=== PATIENT | female | born 1950 | race Caucasian/White ===

== ENCOUNTER 2020-11-23 11:59 | Outpatient (CLI) | payer MEDICARE, SELFPAY ==
[2020-11-23 13:43] LABS: Basophils Percent Auto 0.4 % (0.2-1.2); Eosinophils Absolute Auto 0.2 K/mm3 (0-0.3); Eosinophils Percent Auto 2.4 % (0-4.4); Hematocrit 42.3 % (37.0-47.0); Hemoglobin 13.8 g/dL (12.0-15.0); Immature Granulocyte Absolute 0.04 K/mm3 (0.00-0.031); Immature Granulocyte Percent A 0.5 % (0-0.5); Lymphocytes Absolute Auto 2.99 K/mm3 (0.9-3.2); Lymphocytes Percent Auto 35.3 % (18.3-44.2); Mean Corpuscular HGB Conc 32.6 g/dl (32-36); Mean Corpuscular Hemoglobin 28.9 pg (26-34); Mean Corpuscular Volume 88.5 fl (80-100); Mean Platelet Volume 10.4 fl (7.4-10.4); Monocytes Absolute Auto 0.8 K/mm3 (0.1-0.6); Monocytes Percent Auto 9.4 % (2.6-8.5); Neutrophils Absolute Auto 4.4 K/mm3 (1.3-6.7); Platelet Count Result 342 k/mm3 (150-375); Red Blood Count 4.78 M/mm3 (4.2-5.4); Red Cell Distribution Width 13.4 % (11.5-14.5); White Blood Count 8.5 K/mm3 (4.5-10.0)
[2020-11-23 13:50] LABS: Albumin Level 5.1 g/dL (3.5-5.1); Anion Gap 12 mmol/L (8-16); Blood Urea Nitrogen 16 mg/dL (7-17); Calcium 9.3 mg/dL (8.4-10.2); Carbon Dioxide 27 mmol/L (22-30); Chloride 101 mmol/L (98-107); Estimated Glomerular Filt Rate > 60; Glucose 103 mg/dL (65-110); Potassium 3.7 mmol/L (3.4-5.0); Sodium 140 mmol/L (137-145)
[2020-11-23 13:53] LABS: Hemoglobin A1C 5.4 % (<5.7); Urine Cotinine NEGATIVE
== END 2020-11-23 12:00 | disposition home or self-care (01) ==
LOC: ANHSURGERY 12:06
PROVIDERS: PCP Internal Medicine; Visit Provider Orthopaedic Surgery
DX: M17.11 Unilateral primary osteoarthritis, right knee (principal); Z01.818 Encounter for other preprocedural examination
CPT/HCPCS: 80048; 80307; 82040; 83036; 85025; 86850; 86900; 86901; 87070

== ENCOUNTER 2020-12-06 01:44 | Day surgery (SDC) | payer MEDICARE, SELFPAY ==
[2020-11-23 12:12] VITALS: BMI 29.1
[2020-11-23 13:03] VITALS: BP 130/64; PULSE 69; RESP 16; TEMP 37.1; O2SAT 98
--- NOTE | 2020-12-04 12:33 | PM.IMHP ---
H&P: HPI History of Present Illness Date/Time: 12/04/20 12:33 70-year-old female patient who presents today for a right total knee arthroplasty. She has been progressively worsening symptoms in the right knee. She had cortisone injection approximately May this year which only gave her relief from the local anesthetic. She is unable take anti-inflammatories due to history of ulcerative colitis. She has moderately severe medial compartment arthritis in the right knee and is suffering most days. It is keeping her from daily activities. She has reached a point where she feels she would rather proceed with total knee arthroplasty rather continue nonsurgical treatment. Chief Complaint: right knee DJD Review of Systems Review of Systems: All systems reviewed & are unremarkable except as noted in HPI and below PMFSH Social History Social History Smoking status: Never smoker Additional smoking assessment comments: DENIES ANY FORM OF TOBACCO USE Spiritual care concerns: No Meds Home Medications and Allergies Home Medications Medication Instructions Recorded Confirmed Type Lactobacillus acidophilus 10,000 mmu cells PO EVERY OTHER DAY 11/23/20 11/23/20 History [Probiotic] acetaminophen 650 mg PO PRN PRN 11/23/20 11/23/20 History ascorbate calcium (vitamin C) 500 mg PO QPM 11/23/20 11/23/20 History aspirin [Adult Low Dose Aspirin] 81 mg PO QPM 11/23/20 11/23/20 History buspirone 7.5 mg PO HS 11/23/20 11/23/20 History buspirone 15 mg PO QAM 11/23/20 11/23/20 History cholecalciferol (vitamin D3) 75 mcg PO DAILY 11/23/20 11/23/20 History coenzyme Q10 [CoQ-10] 100 mg PO QPM 11/23/20 11/23/20 History cyanocobalamin (vitamin B-12) 100 mcg PO EVERY OTHER DAY 11/23/20 11/23/20 History diazepam 2 mg PO QAM 11/23/20 11/23/20 History fexofenadine [Delaney Allergy] 180 mg PO DAILY 11/23/20 11/23/20 History fluticasone propionate 2 spray INTRANASAL QPM 11/23/20 11/23/20 History levothyroxine [Synthroid] 75 mcg PO DAILY 11/23/20 11/23/20 History potassium chloride [Klor-Con M20] 40 meq PO QAM 11/23/20 11/23/20 History sertraline 150 mg PO QAM 11/23/20 11/23/20 History simvastatin 40 mg PO HS 11/23/20 11/23/20 History triamterene-hydrochlorothiazid 1 cap PO QAM 11/23/20 11/23/20 History zinc 30 mg PO QPM 11/23/20 11/23/20 History Allergies Allergy/AdvReac Type Severity Reaction Status Date / Time citalopram Allergy Intermediate FELT Verified 11/23/20 12:14 INSIDES BURNING ciprofloxacin AdvReac Severe Muscle pain Verified 11/23/20 12:14 levofloxacin AdvReac Severe Vertigo Verified 11/23/20 12:14 Exam Narrative: 70-year-old female alert pleasant. She is 5 ft 4 and 169 lb. Her right hip has full range of motion negative Stinchfield maneuver. Normal quad strength. right knee range of motion is from 5-135 degrees with pain at full flexion. Trace effusion. Mild pain with patellofemoral grind. Minimal pain to the medial joint line. 2+ dorsalis pedis and posterior tibial artery pulse. Skin is normal. No edema in the right lower extremity. Normal sensation right lower extremity. Resp: Auscultation: clear to auscultation bilaterally Cardio: Rate: regular rate Rhythm: regular rhythm Assessment and Plan Additional Plan 70-year-old female who has severe medial compartment arthritis of the right knee with rather severe symptoms daily. Again she feels she may proceed with total knee arthroplasty rather than continue nonsurgical treatment. Surgical procedure as well as risks and complications were discussed in detail and all questions were answered and we will proceed. Patient has seen her primary care doctor for pre-surgical clearance. She has seen the internal affairs investigator, she had a stress test done in October of 2020 which showed ejection fraction is 75% without abnormalities. She had normal myocardial perfusion and no changes. Echocardiogram also in
[2020-12-06] VITALS (14 sets, daily range): BP systolic 112–161; BP diastolic 47–71; PULSE 72–109; RESP 12–20; TEMP 36.1–38.3; O2SAT 92–97
--- NOTE | ~2020-12-06 | XR_ITS ---
EXAMINATION: XR knee RT 2V DATE: 12/06/2020 15:54 INDICATION: Right knee arthroplasty. Postop. TECHNIQUE: 2 views of right knee were obtained. COMPARISON: None. FINDINGS: There is a total right knee arthroplasty without patellar resurfacing in near-anatomic alig nment. No fracture. There is gas in the knee joint and soft tissues, consistent with recent surgery. IMPRESSION: 1. Total right knee arthroplasty in near-anatomic alignment. Reviewed, dictated and finalized at location A.
[2020-12-06] MEDS: ACETAMINOPHEN 500 MG TABLET 1000 MG PO ×3 (10:29→23:35)
[2020-12-06] MEDS: LACTATED RINGERS 1,000 ML 30 ML IV CONT ×2 (10:35→15:22)
--- NOTE | 2020-12-06 11:11 | WPDANESEPPF ---
Anes - Initial Pre Proc Eval Procedure: Operation Date: 12/06/20 12:00 Proposed Procedures p Right Total Knee Arthroplasty - Harshad Lomas MD Date/Time: 12/06/20 11:11 Surgeon: Harshad Lomas MD Pre Op Diagnosis: OA right knee Patient Data Age: 70 Gender: F Height: 1.63 m Weight: 75.6 kg Last Vital Signs Temp 36.1 C L 12/06/20 09:59 Pulse 72 12/06/20 09:59 Resp 20 12/06/20 09:59 BP 132/68 12/06/20 09:59 Pulse Ox 96 12/06/20 09:59 Allergies Allergy/AdvReac Type Severity Reaction Status Date / Time citalopram Allergy Intermediate FELT Verified 11/23/20 12:14 INSIDES BURNING ciprofloxacin AdvReac Severe Muscle pain Verified 11/23/20 12:14 levofloxacin AdvReac Severe Vertigo Verified 11/23/20 12:14 Home Medications Medication Instructions Recorded Confirmed Type Lactobacillus acidophilus 10,000 mmu cells PO EVERY OTHER DAY 11/23/20 12/06/20 History [Probiotic] acetaminophen 650 mg PO PRN PRN 11/23/20 12/06/20 History ascorbate calcium (vitamin C) 500 mg PO QPM 11/23/20 12/06/20 History aspirin [Adult Low Dose Aspirin] 81 mg PO QPM 11/23/20 12/06/20 History buspirone 7.5 mg PO HS 11/23/20 12/06/20 History buspirone 15 mg PO QAM 11/23/20 12/06/20 History cholecalciferol (vitamin D3) 75 mcg PO DAILY 11/23/20 12/06/20 History coenzyme Q10 [CoQ-10] 100 mg PO QPM 11/23/20 12/06/20 History cyanocobalamin (vitamin B-12) 100 mcg PO EVERY OTHER DAY 11/23/20 12/06/20 History diazepam 2 mg PO QAM 11/23/20 12/06/20 History fexofenadine [Delaney Allergy] 180 mg PO DAILY 11/23/20 12/06/20 History fluticasone propionate 2 spray INTRANASAL QPM 11/23/20 12/06/20 History levothyroxine [Synthroid] 75 mcg PO DAILY 11/23/20 12/06/20 History potassium chloride [Klor-Con M20] 40 meq PO QAM 11/23/20 12/06/20 History sertraline 150 mg PO QAM 11/23/20 12/06/20 History simvastatin 40 mg PO HS 11/23/20 12/06/20 History triamterene-hydrochlorothiazid 1 cap PO QAM 11/23/20 12/06/20 History zinc 30 mg PO QPM 11/23/20 12/06/20 History Patient hx anesthesia problems: none Family hx anesthesia problems: none Results Review: All pre-operative results and documents have been reviewed as part of the pre-operative evaluation. [facility] Past Medical History Medical History GERD (gastroesophageal reflux disease) Hyperlipidemia Hypertension Hypothyroid EMILY (obstructive sleep apnea) Social History Social History Smoking status: Never smoker Additional smoking assessment comments: DENIES ANY FORM OF TOBACCO USE Living arrangements: with family Spiritual care concerns: No Anes - Eval Final PreProcedure Day of Procedure 12/06/20 11:11 Patient weight: overweight Heart: regular rate and rhythm Lungs: clear to auscultation Airway: Mallampati scale class III Neurological: alert and oriented Last oral intake: >/= 8 hours ASA classification: III Emergent: no Anesthetic plan: proceed Anesthesia type and monitoring: general LMA and standard monitoring Results Review: All pre-operative results and documents have been reviewed as part of the pre-operative evaluation. Informed Consent: The patient's anesthetic plan and its attendant risks and benefits were discussed with the patient/family/POA. Questions were solicited and answers provided to the satisfaction of the patient/family/POA.
[2020-12-06] MEDS: SCOPOLAMINE 1.5 MG PATCH TRANSDERM (11:33)
[2020-12-06] MEDS: TRANEXAMIC ACID 1,000MG/ISO100 1,000 MG/100 ML BAG 200 MG IVPB (11:33)
--- NOTE | 2020-12-06 11:44 | WPDHPUPDATE1 ---
History and Physical Update Update Date/Time: 12/06/20 11:44 History and Physical has been reviewed, including an updated exam of the patient. There are NO changes in the patient's condition. Risks, benefits, and alternatives have been discussed and questions answered. Patient agrees to proceed with procedure.
[2020-12-06] MEDS: ceFAZolin 2 GM/D5W 50 ML 2 GM/50 ML BAG IVPB (12:04)
[2020-12-06] MEDS: ceFAZolin SODIUM 1 GM VIAL 3 GM IRRIGATION (12:48)
[2020-12-06] MEDS: GENTAMICIN BONE CEMENT REFOBACIN 1 EACH TOPICAL (12:52)
[2020-12-06] MEDS: TRANEXAMIC ACID 1,000 MG/10 ML AMPUL 1000 MG IV PUSH (14:08)
[2020-12-06] MEDS: ceFAZolin SODIUM 1 GM VIAL IV PUSH (14:08)
--- NOTE | 2020-12-06 14:57 | W.PM.PROC2 ---
Procedure Note - Detailed Date of Procedure 12/06/20 Pre-op Diagnosis OA right knee Post-op Diagnosis same Procedure Performed Right total knee arthroplasty Surgeon Harshad Lomas MD Nurse Practitioner Joyce Bosch Anesthesia general Indications Pain failure of non operative treatment Findings Same Description of Procedure Patient brought to the operating room and general anesthesia was administered. She received 2 g of Ancef weight based vancomycin 1 g of tranexamic acid preoperatively. The right knee was prepped draped usual fashion. Limb was exsanguinated and tourniquet elevated to 250 mmHg. A E and 8 in longitudinal incision was made and a vastus medialis splitting approach utilized. She became somewhat hypertensive with the anesthesia a blood pressure of 180 which caused bleeding through the tourniquet. We deflated the tourniquet re-exsanguinated and elevated the tourniquet to 300 mmHg for the rest the procedure. Suprapatellar and infrapatellar fat pads were excised the quadriceps defect be carried out. The patella had chondromalacia along its medial facet but otherwise normal cartilage thickness and had a smooth contour which I felt was most suitable for non resurfacing. A limited lateral facetectomy was performed. A guide eboni was inserted on femoral canal for aspiration of canal contents using the 5 degree valgus cutting bushing 9 mm of bone removed the distal femur. This removed about 7 lateral side. Next a skim cut was made off the tibial plateau cutting just underneath the articular cartilage the posterior aspect of the medial lateral plateaus. This was made perpendicular to the axis of the tibia. Meniscal remnants were excised. PCL was recessed. At 90?, the medial side gap 7 mm the lateral side 11. A sizing guide was inserted set at 4? of external rotation which matched Whitesides line. Posterior referencing pinholes were placed. We placed the size 62.5 which was the proper with her femur that was going to notch. Even the 65 was going to notch. We introduced about 3? of slope to the distal femoral cut reapplied the distal femoral cutting block 65 AP and chamfer cuts were made. As predicted the 65 was a little bit wide but did not notch rest on the anterior surface of the anterior cortex anteriorly. It overhung 2 laterally 1 medially. We found that insertion of the 10 mm CR on the 67 was tight at 90?. I felt additional 2 mm of bone should removed from the tibial plateau and this was done again perpendicular to the axis of the tibia. We sized the tibial plateau to a vanguard 67 which fit line to line posterolateral to anteromedial. Rotation was set relative to the medial 1/3 of the tibial tubercle anterior tibial plateau in the 2nd metatarsal ray. This was punched we trialed with the 10. At 90? we had a mm of play medially a mm and half of plate laterally with very appropriate anterior-posterior drawer stability gravity flexion to 140 and full extension with a negative bounce with 1 mm of medial plate 5? no medial plate and full extension 2 mm of lateral play varus stress. This seemed very appropriate. Since the femoral component was a little bit too wide we applied the 62.5 cutting block and made sure it was aligned with the same posterior slope maintaining flush alignment with the posterior condylar cuts and this was additionally stabilized with the threaded compression pins. We then recut the anterior and the anterior chamfer cuts and applied the 62.5 which fit line to line medial to lateral with an excellent fit and full seating. Residual posterior femoral bone was removed this time. We then replaced the 67 tibia 10 spacer and placed the 11 insert trial and a 62.5 trial. This lacked about 2 or 3? of extension with a positive bounce and had no anterior posterior drawer plate 90? on either side. We trialed with the 10 and had the same findings as before with full extension negative bounce and appropriate AP stability feel througho
[2020-12-06] MEDS: fentaNYL CITRATE INJ (*CRX) 100 MCG/2 ML VIAL 25 MCG IV PUSH ×4 (16:14→16:30)
--- NOTE | 2020-12-06 17:09 | PC.NURSE ---
This patient, Yadira Roe, was admitted to 2 Medical Room 259-. Patient/family oriented to hospital policies and general routines including ID bracelet, bed and alarms, visiting hours, pain management, procedures, bathroom and other care routines, personal items, smoking policy, room service/diet, and visiting hours. Information on how to activate the Rapid Response Team has been discussed. Patient/Family are encouraged to report perceived risks to care and to ask questions if they do not understand what they are told or what they should do.
[2020-12-06] MEDS: FLUTICASONE PROPIONATE 0.05% NA SPR 16 GM BTL (*BKC) 2 SPRAY NASAL (18:03)
[2020-12-06] MEDS: SENNA/DOCUSATE SODIUM TABLET 2 TAB PO (18:05)
[2020-12-06] MEDS: ASCORBIC ACID 500 MG TABLET PO (18:05)
[2020-12-06] MEDS: oxyCODONE HCL (*CRX) 5 MG TAB IR PO (20:05)
[2020-12-06] MEDS: SIMVASTATIN 20 MG TABLET 40 MG PO (20:05)
[2020-12-06] MEDS: busPIRone HCL 2.5 MG, busPIRone HCL 5 MG 7.5 MG PO (20:05)
--- NOTE | 2020-12-06 23:35 | PM.IMHP ---
H&P: HPI History of Present Illness Date/Time: 12/06/20 23:35 this is a 70-year-old female patient who presented today for right total knee arthroplasty. The patient has been having progressively worsening symptoms in her right knee. The patient was complaining of having some pain at started up, with activity and nocturnal pain. The patient did do some physical therapy which she said helped better than the course all injections. The patient is unable to take anti-inflammatories due to history of ulcerative colitis. The patient has moderately severe medial compartment arthritis in her right knee and is in pain most days. [facility] Past Medical History Medical History GERD (gastroesophageal reflux disease) Hyperlipidemia Hypertension Hypothyroid EMILY (obstructive sleep apnea) Social History Social History Smoking status: Never smoker Additional smoking assessment comments: DENIES ANY FORM OF TOBACCO USE Alcohol intake: never Substance use: never Substance use type: does not use Living arrangements: with family Spiritual care concerns: No Meds Home Medications and Allergies Home Medications Medication Instructions Recorded Confirmed Type Lactobacillus acidophilus 10,000 mmu cells PO EVERY OTHER DAY 11/23/20 12/06/20 History [Probiotic] acetaminophen 650 mg PO PRN PRN 11/23/20 12/06/20 History ascorbate calcium (vitamin C) 500 mg PO QPM 11/23/20 12/06/20 History aspirin [Adult Low Dose Aspirin] 81 mg PO QPM 11/23/20 12/06/20 History buspirone 7.5 mg PO HS 11/23/20 12/06/20 History buspirone 15 mg PO QAM 11/23/20 12/06/20 History cholecalciferol (vitamin D3) 75 mcg PO DAILY 11/23/20 12/06/20 History coenzyme Q10 [CoQ-10] 100 mg PO QPM 11/23/20 12/06/20 History cyanocobalamin (vitamin B-12) 100 mcg PO EVERY OTHER DAY 11/23/20 12/06/20 History diazepam 2 mg PO QAM 11/23/20 12/06/20 History fexofenadine [Delaney Allergy] 180 mg PO DAILY 11/23/20 12/06/20 History fluticasone propionate 2 spray INTRANASAL QPM 11/23/20 12/06/20 History levothyroxine [Synthroid] 75 mcg PO DAILY 11/23/20 12/06/20 History potassium chloride [Klor-Con M20] 40 meq PO QAM 11/23/20 12/06/20 History sertraline 150 mg PO QAM 11/23/20 12/06/20 History simvastatin 40 mg PO HS 11/23/20 12/06/20 History triamterene-hydrochlorothiazid 1 cap PO QAM 11/23/20 12/06/20 History zinc 30 mg PO QPM 11/23/20 12/06/20 History Allergies Allergy/AdvReac Type Severity Reaction Status Date / Time citalopram Allergy Intermediate FELT Verified 12/06/20 17:17 INSIDES BURNING ciprofloxacin AdvReac Severe Muscle pain Verified 12/06/20 17:17 levofloxacin AdvReac Severe Vertigo Verified 12/06/20 17:17 Vital Signs Vital Signs - 24 hr 12/06/20 09:59 12/06/20 15:22 12/06/20 15:35 Temperature 36.1 C L 38.3 C H 38.3 C H Pulse Rate 72 109 H 103 H Respiratory Rate 20 14 14 Blood Pressure 132/68 143/71 H 155/68 H Pulse Oximetry 96 96 97 12/06/20 15:50 12/06/20 16:05 12/06/20 16:20 Temperature 37.8 C H Pulse Rate 101 H 96 91 Respiratory Rate 14 14 12 Blood Pressure 144/64 H 143/64 H 144/64 H Pulse Oximetry 97 92 94 12/06/20 16:35 12/06/20 17:10 12/06/20 17:15 Temperature 36.9 C 36.6 C Pulse Rate 92 92 Respiratory Rate 12 18 Blood Pressure 137/70 161/67 H Pulse Oximetry 94 96 96 12/06/20 17:25 12/06/20 17:55 12/06/20 18:55 Temperature 36.7 C 36.3 C L 36.7 C Pulse Rate 91 96 96 Respiratory Rate 18 18 18 Blood Pressure 148/65 H 129/67 124/54 L Pulse Oximetry 94 97 97 12/06/20 20:00 12/06/20 21:20 Temperature 36.6 C Pulse Rate 81 Respiratory Rate 16 Blood Pressure 112/47 L Pulse Oximetry 93 93
--- NOTE | 2020-12-06 23:56 | PM.IMCN ---
Assessment and Plan Assessment and plan (1) S/P total knee arthroplasty: Code(s): Z96.659 - Presence of unspecified artificial knee joint Status: Inactive Assessment and Plan: Postop care per Ortho. DVT prophylaxis per Ortho. It looks like the patient is on Eliquis. Pain management per Ortho. (2) Hypertension: Code(s): I10 - Essential (primary) hypertension Status: Chronic Assessment and Plan: Patient has been continued with her home medication with triamterene and hydrochlorothiazide. (3) Generalized anxiety disorder: Code(s): F41.1 - Generalized anxiety disorder Status: Chronic Assessment and Plan: Continue with Zoloft (4) Hyperlipidemia: Code(s): E78.5 - Hyperlipidemia, unspecified Status: Chronic Assessment and Plan: Continue with Zocor (5) Hypothyroid: Code(s): E03.9 - Hypothyroidism, unspecified Status: Chronic Assessment and Plan: Check thyroid level and continue with levothyroxine. (6) Diastolic dysfunction: Code(s): I51.89 - Other ill-defined heart diseases Status: Acute Assessment and Plan: The patient is not currently on any medication for this. HPI Data of Consult Consult date: 12/06/20 Requesting Physician: Harshad Lomas MD Primary Care Provider: Chris Sotelo, Consult Narrative Narrative: Yadira Roe is a 70 year old female who presented today for right total knee arthroplasty per Dr. lomas. The patient's symptoms have progressively been getting worse to right knee. The patient has start-up pain and she has nocturnal pain. The patient is not able to take anti-inflammatories due to history of ulcerative colitis. Patient has moderately severe medial carpal arthritis in the right knee and is suffering most days. The patient did try some physical therapy which she said did help some. The patient chose to have a right total knee arthroplasty rather than to continue with conservative measures. Patient had a cardiac workup including an echo and a stress test. Patient has some diastolic dysfunction and was cleared for surgery. Please see operative report. Patient has no complaints is doing well at this time. [facility] and [facility] opportunity to consult on this patient on the date of service of 12/06/2020. Review of Systems Review of Systems: All systems reviewed & are unremarkable except as noted in HPI and below Constitutional: Constitutional: Reports as per HPI and Reports no additional constitutional complaints Eyes: Eyes: Reports as per HPI and Reports no additional eye complaints ENT: Reports system reviewed and no additional complaints, except as documented and Reports Normal hearing present Cardiovascular: Cardiovascular: Reports no additional cardiovascular complaints Respiratory: Respiratory: Reports no additional respiratory complaints and Reports no additional respiratory complaints Gastrointestinal: Gastrointestinal: Reports as per HPI and Reports no additional gastrointestinal complaints Musculoskeletal: Musculoskeletal: Reports no additional musculoskeletal complaints Integumentary/Breasts: Skin/Breast: Reports system reviewed and no additional complaints, except as docu and Reports as per HPI Neurologic: Reports system reviewed and no additional complaints, except as documented, Reports as per HPI and Reports Normal hearing present Psychiatric: Psychiatric: Reports no additional psychiatric complaints and Reports as per HPI Endocrine: Endocrine: Reports no additional endocrine complaints Hematologic/Lymphatic: Hematologic/Lymphatic: Reports no additional hematologic/lymphatic complaints Allergic/Immunologic: Allergic/Immunologic: Reports no additional allergic/immunologic complaints [facility] Past Medical History Medical History (Updated 12/06/20 @ 23:48 by Jeanette Alcantara NP) Diastolic dysfunction Generalized anxiet
[2020-12-07 00:47] VITALS: BP 109/49; PULSE 70; RESP 16; TEMP 36.6; O2SAT 95
[2020-12-07] MEDS: oxyCODONE HCL (*CRX) 5 MG TAB IR PO ×4 (00:49→13:06)
[2020-12-07 05:11] VITALS: BP 106/47; PULSE 65; RESP 16; TEMP 36.4; O2SAT 95
[2020-12-07 05:53] LABS: Basophils Percent Auto 0.1 % (0.2-1.2); Eosinophils Percent Auto 0.1 % (0-4.4); Hematocrit 32.9 % (37.0-47.0); Hemoglobin 10.8 g/dL (12.0-15.0); Immature Granulocyte Absolute 0.09 K/mm3 (0.00-0.031); Immature Granulocyte Percent A 0.6 % (0-0.5); Lymphocytes Absolute Auto 1.49 K/mm3 (0.9-3.2); Lymphocytes Percent Auto 10.7 % (18.3-44.2); Mean Corpuscular HGB Conc 32.8 g/dl (32-36); Mean Corpuscular Hemoglobin 28.7 pg (26-34); Mean Corpuscular Volume 87.5 fl (80-100); Mean Platelet Volume 10.6 fl (7.4-10.4); Monocytes Absolute Auto 1.5 K/mm3 (0.1-0.6); Monocytes Percent Auto 10.4 % (2.6-8.5); Neutrophils Absolute Auto 10.9 K/mm3 (1.3-6.7); Neutrophils Percent Auto 78.1 % (45.5-73.1); Platelet Count Result 271 k/mm3 (150-375); Red Blood Count 3.76 M/mm3 (4.2-5.4); Red Cell Distribution Width 13.3 % (11.5-14.5)
[2020-12-07] MEDS: LEVOTHYROXINE SODIUM 75 MCG TABLET PO (06:06)
[2020-12-07] MEDS: ACETAMINOPHEN 500 MG TABLET 1000 MG PO ×2 (06:06→11:43)
[2020-12-07 06:08] LABS: Anion Gap 8 mmol/L (8-16); Blood Urea Nitrogen 14 mg/dL (7-17); Calcium 8.4 mg/dL (8.4-10.2); Carbon Dioxide 28 mmol/L (22-30); Chloride 100 mmol/L (98-107); Estimated CRCL calculation 58 ml/min; Estimated Glomerular Filt Rate > 60; Glucose 136 mg/dL (65-110); Potassium 3.4 mmol/L (3.4-5.0); Sodium 136 mmol/L (137-145)
--- NOTE | 2020-12-07 07:13 | WPDANESPN ---
Anes - Prog Note Post-Op Date/Time: 12/07/20 07:13 Cardiovascular status: normal Respiratory status: normal Airway patency: baseline Mental status: baseline Post-Op hydration status: normal Vital Signs: Last Vital Signs Temp 97.5 F L 12/07/20 05:11 Pulse 65 12/07/20 05:11 Resp 16 12/07/20 05:11 BP 106/47 L 12/07/20 05:11 Pulse Ox 95 12/07/20 05:11 Pain Score (VAS): 03/05 I/O: Intake & Output 12/06/20 12/06/20 12/07/20 15:59 23:59 07:59 Intake Total 400 150 750 Output Total 1400 Balance 400 150 -650 Laboratory Tests 12/07/20 05:16 12/07/20 05:16 12/07/20 12/07/20 05:16 05:16 WBC 14.0 H RBC 3.76 L Hgb 10.8 L D Hct 32.9 L MCV 87.5 MCH 28.7 MCHC 32.8 RDW 13.3 Plt Count 271 MPV 10.6 H Immature Gran % (Auto) 0.6 H Neut % (Auto) 78.1 H Lymph % (Auto) 10.7 L Worth % (Auto) 10.4 H Eos % (Auto) 0.1 Baso % (Auto) 0.1 L Lymph # (Auto) 1.49 Worth # (Auto) 1.5 H Eos # (Auto) 0.0 Baso # (Auto) 0.0 Abs Immat Gran (auto) 0.09 H Absolute Neuts (auto) 10.9 H Absolute Nucleated RBC 0.0 Nucleated RBC % 0.0 Sodium 136 L Potassium 3.4 Chloride 100 Carbon Dioxide 28 Anion Gap 8 BUN 14 Creatinine 0.80 Estim Creat Clear Calc 58 Estimated GFR > 60 Glucose 136 H Calcium 8.4 Post-procedural complaints: none Patient Feedback: Patient satisfied with anesthetic care.
--- NOTE | 2020-12-07 07:24 | PM.PNORT ---
Progress Note: A&P Additional Plan Postop day 1 patient is alert afebrile vital signs are stable. Dressing is dry. Neurovascular she is intact. She has been on multiple times overnight to the restroom as well sitting up in a chair yesterday afternoon after surgery. Pain is well controlled. Labs were noted. She has some mild swelling in the knee as well as some bruising which is also mild. While the patient worked with physical therapy 2 times today if she continues to do well we will plan on sending her home this afternoon. Subjective Subjective Date/Time Seen: 12/07/20 07:24 Objective Data Vital Signs Vital Signs: Vital Signs - 24 hr 12/06/20 09:59 12/06/20 15:22 12/06/20 15:35 Temperature 36.1 C L 38.3 C H 38.3 C H Pulse Rate 72 109 H 103 H Respiratory Rate 20 14 14 Blood Pressure 132/68 143/71 H 155/68 H Pulse Oximetry 96 96 97 12/06/20 15:50 12/06/20 16:05 12/06/20 16:20 Temperature 37.8 C H Pulse Rate 101 H 96 91 Respiratory Rate 14 14 12 Blood Pressure 144/64 H 143/64 H 144/64 H Pulse Oximetry 97 92 94 12/06/20 16:35 12/06/20 17:10 12/06/20 17:15 Temperature 36.9 C 36.6 C Pulse Rate 92 92 Respiratory Rate 12 18 Blood Pressure 137/70 161/67 H Pulse Oximetry 94 96 96 12/06/20 17:25 12/06/20 17:55 12/06/20 18:55 Temperature 36.7 C 36.3 C L 36.7 C Pulse Rate 91 96 96 Respiratory Rate 18 18 18 Blood Pressure 148/65 H 129/67 124/54 L Pulse Oximetry 94 97 97 12/06/20 20:00 12/06/20 21:20 12/07/20 00:47 Temperature 36.6 C 36.6 C Pulse Rate 81 70 Respiratory Rate 16 16 Blood Pressure 112/47 L 109/49 L Pulse Oximetry 93 93 95 12/07/20 05:11 Temperature 36.4 C L Pulse Rate 65 Respiratory Rate 16 Blood Pressure 106/47 L Pulse Oximetry 95 Intake/Output Intake/Output: Intake & Output 12/04/20 12/05/20 12/06/2012/07/21 23:59 23:59 23:59 23:59 Intake Total 550 750 Output Total 1400 Balance 550 -650 Meds/Results Medications: Active Medications Generic Name Dose Route Start Last Admin Trade Name Vimal PRN Reason Stop Dose Admin Acetaminophen 1,000 mg 12/06/20 18:00 12/07/20 06:06 Acetaminophen 500 Mg Tablet PO 1,000 mg Q6H AMELIE Administration Apixaban 2.5 mg 12/07/20 09:00 Apixaban 2.5 Mg Tablet PO Q12HR AMELIE Ascorbic Acid 500 mg 12/06/20 18:00 12/06/20 18:05 Ascorbic Acid 500 Mg Tablet PO 500 mg QPM AMELIE Administration Buspirone HCl 15 mg 12/07/20 09:00 Buspirone Hcl 5 Mg Tablet PO QAM AMELIE Buspirone HCl 2.5 mg/ 7.5 mg 12/06/20 21:00 12/06/20 20:05 Buspirone HCl 5 mg PO 7.5 mg HS AMELIE Administration Celecoxib 200 mg 12/07/20 08:00 Celecoxib 200 Mg Capsule PO DAILY@0800 AMELIE Diazepam 2 mg 12/07/20 09:00 Diazepam (*Crx) 2 Mg Tablet PO QAM AMELIE Fluticasone Propionate 2 spray 12/06/20 18:00 12/06/20 18:03 Fluticasone Propionate 0.05% Na Spr 16 Gm Btl (*Bkc) NASAL 2 spray QPM AMELIE Administration Cefazolin Sodium 1 gm in 50 mls @ 100 mls/hr 12/06/20 20:00 12/07/20 04:48 Ancef 1 Gm/D5w 50 Ml Pm IVPB 12/07/20 12:29 100 mls/hr Q8H AMELIE Administration Vancomycin HCl 1,000 mg in 250 mls @ 250 mls/hr 12/06/20 23:00 12/07/20 01:13 Vancomycin 1,000 Mg/D5w 250 Ml IVPB 12/07/20 11:59 Infused Q12H AMELIE Infusion Levothyroxine Sodium 75 mcg 12/07/20 06:30 12/07/20 06:06 Levothyroxine Sodium 75 Mcg Tablet PO 75 mcg DAILY@0630 AMELIE Administration Loratadine 10 mg 12/07/20 09:00 Loratadine 10 Mg Tablet PO DAILY [facility] Miscellaneous Information 0 each 12/06/20 00:01 Cyanocobalamin 100 Mcg Is Non-Formulary XX 01/05/21 00:00 [facility]IFY [facility] Miscellaneous Information 0 each 12/06/20 00:01 Zinc 25 Mg (Or 30 Mg) Is Non-Formulary XX 01/05/21 00:00 [facility] Miscellaneous Information 0 each 12/06/20 00:01 Lactobacillus Acidophilus 10 Billion Cell Is Non-Formulary XX 01/05/21 00:00 [facility] Morphine Sulfate 2 mg
--- NOTE | 2020-12-07 07:33 | PM.DS ---
DS: Admitting Diagnosis Discharge Date 12/07 Admitting Diagnosis right knee DJD DS: Summary Hospital Course Hospital Course: stable Time Spent with Patient Time attestation: Total time spent providing and/or coordinating discharge services: 70-year-old female underwent right total knee arthroplasty on . Underwent the procedure without any complications. Postoperatively she has been afebrile vital signs were stable. Neurovascular she is intact. Her dressing is dry. She was up to the restroom at the day of surgery and walking and comfortable. Pain is well controlled with scheduled Tylenol as well as on oxycodone 5 mg. She is also on Celebrex 200 mg daily. She is on Eliquis for DVT prophylaxis for 2 weeks followed by baby aspirin b.i.d.. The patient overall is doing very well, will plan on patient to work with physical therapy on postop day 1 and if she does well we will discharge her home later that day on 12/07. She will also go home on a 10 day course of Keflex. DS: Data Data Completed and Pending Labs on day of discharge: Labs from last 24 hours 12/07/20 12/07/20 05:16 05:16 WBC 14.0 H RBC 3.76 L Hgb 10.8 L D Hct 32.9 L MCV 87.5 MCH 28.7 MCHC 32.8 RDW 13.3 Plt Count 271 MPV 10.6 H Immature Gran % (Auto) 0.6 H Neut % (Auto) 78.1 H Lymph % (Auto) 10.7 L Andrews % (Auto) 10.4 H Eos % (Auto) 0.1 Baso % (Auto) 0.1 L Lymph # (Auto) 1.49 Andrews # (Auto) 1.5 H Eos # (Auto) 0.0 Baso # (Auto) 0.0 Abs Immat Gran (auto) 0.09 H Absolute Neuts (auto) 10.9 H Absolute Nucleated RBC 0.0 Nucleated RBC % 0.0 Sodium 136 L Potassium 3.4 Chloride 100 Carbon Dioxide 28 Anion Gap 8 BUN 14 Creatinine 0.80 Estim Creat Clear Calc 58 Estimated GFR > 60 Glucose 136 H Calcium 8.4 Discharge Plan Discharge Patient Disposition: Home, Self-Care Discharge Instructions: Remove the Scopolamine patch that was placed behind your ear in 72 hours or less. Wash your hands after touching. Makenna GALARZA [facility] [place] [address] POST-OPERATIVE DISCHARGE INSTRUCTIONS TOTAL KNEE ARTHROPLASTY 1. When resting, lie on back with leg elevated above hear to minimize swelling. Significant swelling could indicate a blood clot and if this occurs call the office (or go to the ER) to have a venous ultrasound. 2. Do exercise 5 times a day. 3. Do not sit with leg down except for meals. 4. Wound Care: Nursing will give additional dressings at discharge. Patient to change dressing at home 1 week from surgery, then maintain until seen in office. 5. May shower with dressing in place. 6. Follow weight bearing status instructions. 7. Limit sitting inchair with leg down to 20 min at a time,4 times a day Stand Alone Forms: General Discharge Instructions Follow-up/Referrals: Harshad Lomas MD [Physician] - Keep Reg. Scheduled Appt. Discharge Medications: New acetaminophen 500 mg Tablet 1,000 mg PO Q6H Qty: 90 RF: 0 Eliquis 2.5 mg Tablet 2.5 mg PO Q12HR Qty: 27 RF: 0 celecoxib [Celebrex] 200 mg Capsule 200 mg PO DAILY@0800 Qty: 30 RF: 0 sennosides-docusate sodium [Senokot-S] 8.6-50 mg Tablet 2 tab-cap PO BID Qty: 60 RF: 0 polyethylene glycol 3350 [Miralax] 17 gram Powder In Packet 17 g PO QAM Qty: 30 RF: 0 oxycodone 5 mg Tablet 5 mg PO Q4H Qty: 40 RF: 0 cephalexin 500 mg capsule 500 mg PO Q6H Qty: 40 RF: 0 Continued sertraline 100 mg tablet 150 mg PO QAM RF: 0 triamterene-hydrochlorothiazid 37.5-25 mg capsule 1 cap PO QAM RF: 0 diazepam 2 mg tablet 2 mg PO QAM RF: 0 buspirone 15 mg tablet 15 mg PO QAM RF: 0 fexofenadine [Delaney Allergy] 180 mg Tablet 180 mg PO DAILY RF: 0 simvastatin 40 mg tablet 40 mg PO HS RF: 0 levothyroxine [Synthroid] 75 mcg tablet 75 mcg PO DAILY RF: 0 flut
[2020-12-07] MEDS: APIXABAN 2.5 MG TABLET PO (07:52)
[2020-12-07] MEDS: busPIRone HCL 5 MG TABLET 15 MG PO (07:52)
[2020-12-07] MEDS: CELECOXIB 200 MG CAPSULE PO (07:52)
[2020-12-07] MEDS: TRIAMTERENE 37.5 MG/HCTZ 25 MG (MAXZIDE) TABLET 1 TAB PO (07:53)
[2020-12-07] MEDS: polyethylene glycoL 3350 17 GM POWD.PACK PO (07:53)
[2020-12-07] MEDS: LORATADINE 10 MG TABLET PO (07:53)
[2020-12-07] MEDS: SERTRALINE HCL 50 MG TABLET 150 MG PO (07:54)
[2020-12-07] MEDS: diazePAM (*CRX) 2 MG TABLET PO (09:10)
[2020-12-07] MEDS: SENNA/DOCUSATE SODIUM TABLET 2 TAB PO (09:10)
[2020-12-07] MEDS: CHOLECALCIFEROL 1,000 UNITS TABLET 3000 UNITS PO (09:10)
[2020-12-07 10:08] VITALS: BP 122/53; PULSE 70; RESP 16; TEMP 36.4; O2SAT 96
--- NOTE | 2020-12-07 14:04 | PM.EVENT ---
Event Note Event Note Event Note: Pt discharged prior to being seen by the hospitalist.
== END 2020-12-07 13:35 | disposition home or self-care (01) ==
LOC: ANHSURGERY 11:40 → ANH2MED 16:51
PROVIDERS: PCP Internal Medicine; Visit Provider Orthopaedic Surgery
PROC: (CPT 27447; principal; 2020-12-06 12:00)
DX: M17.11 Unilateral primary osteoarthritis, right knee (principal); I11.9 Hypertensive heart disease without heart failure; E78.5 Hyperlipidemia, unspecified; E03.9 Hypothyroidism, unspecified; G47.33 Obstructive sleep apnea (adult) (pediatric); K21.9 Gastro-esophageal reflux disease without esophagitis; F41.1 Generalized anxiety disorder; Z79.82 Long term (current) use of aspirin
CPT/HCPCS: 27447; 36415; 73560; 80048; 80307; 82040; 83036; 85025; 86850; 86900; 86901; 87070; 97110; 97161; 97165; A9270; C1713; C1776; J0171; J0330; J0690; J1100; J1170; J1885; J2250; J2270; J2405; J2704; J2710; J2795; J3010; J3370; J7120

== ENCOUNTER 2021-09-08 10:16 | Emergency (ER) | payer MEDICARE, SELFPAY ==
[2021-09-08 10:22] VITALS: BP 144/71; PULSE 81; RESP 16; TEMP 37.4; O2SAT 99
--- NOTE | 2021-09-08 10:27 | ED.FEMALEGU ---
HPI - Female Genitourinary General Chief complaint: Urogenital-Female Stated complaint: Urinary Problem Time Seen by Provider: 09/08/21 10:20 Source: patient and RN notes reviewed History of Present Illness HPI Narrative: Patient is a 70-year-old female who presents the urgent care with complaints of a possible UTI. Patient did have Macrobid in July however was noted on culture that there was no bacteria and patient did stop the medication. Patient does have a history of UTIs. States her symptoms started yesterday with burning, low back pain and blood in the urine. Denies any fever, nausea, vomiting, abdominal pain. Patient's not taken anything [id number] for her symptoms. No other acute complaints. No acute distress noted. Patient aware of the plan of care. Some parts of this dictation were generated by voice recognition software and may contain typographical and/or grammatical inaccuracies. Related Data Home Medications Medication Instructions Recorded Confirmed buspirone 15 mg tablet 15 mg PO QAM 11/23/20 09/08/21 levothyroxine 75 mcg tablet 75 mcg PO DAILY 11/23/20 09/08/21 (Synthroid) potassium chloride 20 mEq 20 meq PO QAM 11/23/20 09/08/21 tablet,extended release(part/cryst) (Klor-Con M) sertraline 100 mg tablet 150 mg PO QAM 11/23/20 09/08/21 simvastatin 40 mg tablet 40 mg PO HS 11/23/20 09/08/21 triamterene 37.5 1 cap PO QAM 11/23/20 09/08/21 mg-hydrochlorothiazide 25 mg capsule Allergies Allergy/AdvReac Type Severity Reaction Status Date / Time citalopram Allergy Intermediate FELT Verified 09/08/21 10:29 INSIDES BURNING ciprofloxacin AdvReac Severe Muscle pain Verified 09/08/21 10:29 levofloxacin AdvReac Severe Vertigo Verified 09/08/21 10:29 Review of Systems Review of Systems: CONSTITUTIONAL: Denies fever, chills, or sweats. EYES: Denies visual changes, redness, or discharge. ENT: Denies rhinorrhea, congestion, sore throat, or otalgia. CARDIOVASCULAR: Denies chest pain, palpitations, or edema. RESPIRATORY: Denies cough or dyspnea. GASTROINTESTINAL: Denies abdominal pain, nausea, vomiting, or diarrhea. GENITOURINARY: Reports of dysuria, hematuria and flank pain SKIN: Denies rash or itching. MUSCULOSKELETAL: Denies back pain, joint pain, or myalgia. NEUROLOGIC: Denies headache, numbness, or weakness. All other systems reviewed are negative, except as documented in HPI. [facility] Past Medical History Medical History (Updated 09/08/21 @ 11:10 by PAM Vazquez) Diastolic dysfunction Generalized anxiety disorder GERD (gastroesophageal reflux disease) History of removal of breast implant Hyperlipidemia Hypertension Hypothyroid EMILY (obstructive sleep apnea) Surgical History Surgical History (Updated 12/07/20 @ 07:31 by LOGAN Vang) H/O bilateral breast reduction surgery H/O breast implant H/O breast surgery At least 4 surgery S/P total knee arthroplasty Right knee Family History Family History (Updated 12/06/20 @ 23:50 by Jeanette Alcantara NP) Mother Lung cancer Social History Social History (Updated 12/06/20 @ 23:51 by Jeanette Alcantara NP) Social History: The patient lives with her who is a durable power commercial real estate attorney for healthcare along with her son. She has 1 son. 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 She does not use any marijuana alcohol or illicit drugs. Code status full code Smoking status: Never smoker Additional smoking assessment comments: DENIES ANY FORM OF TOBACCO USE Alcohol intake: never Substance use: never Substance use type: does not use Spiritual care concerns: No Comments At the time of my signature, I reviewed and agree with the nursing past medical, surgical, social, and family history. There is no relevant family history pertinent to the patient complaint. Exam Narrative: GENERAL: This is a well-nourished, well-developed
[2021-09-08 10:31] VITALS: BP 144/71; PULSE 81; RESP 16; TEMP 37.4; O2SAT 99
== END 2021-09-08 11:13 | disposition home or self-care (01) ==
PROVIDERS: Emergency Provider Nurse Practitioner Family; PCP Internal Medicine
DX: N39.0 Urinary tract infection, site not specified (principal); K21.9 Gastro-esophageal reflux disease without esophagitis; E78.5 Hyperlipidemia, unspecified; I10 Essential (primary) hypertension; E03.9 Hypothyroidism, unspecified; G47.33 Obstructive sleep apnea (adult) (pediatric); Z96.651 Presence of right artificial knee joint; F41.1 Generalized anxiety disorder
CPT/HCPCS: 81003; 87077; 87086; 87186; 99213; G0463

== ENCOUNTER 2021-10-31 17:21 | Emergency (ER) | payer MEDICARE, SELFPAY ==
--- NOTE | 2021-10-31 17:23 | ED.FEMALEGU ---
HPI - Female Genitourinary General Chief complaint: Urogenital-Female Stated complaint: Poss bladder infection Time Seen by Provider: 10/31/21 17:28 Source: patient and RN notes reviewed Mode of arrival: ambulatory Limitations: no limitations History of Present Illness HPI Narrative: 71-year-old female presents with concern for urinary tract infection symptoms. She reports a history of urinary tract infections. Reports she was treated in August for urinary tract infection. She reports she feels like her symptoms mostly resolved but possibly did not fully resolve. She reports she has an appointment with her urologist in a little over a week. Reports she has a history of having to have her urethra dilated. She denies fever, chills, body aches, nausea, vomiting, abdominal pain. She reports low back pain, urine frequency. MD elicited complaint: UTI Related Data Home Medications Medication Instructions Recorded Confirmed buspirone 15 mg tablet 15 mg PO QAM 11/23/20 10/31/21 levothyroxine 75 mcg tablet 75 mcg PO DAILY 11/23/20 10/31/21 (Synthroid) potassium chloride 20 mEq 20 meq PO QAM 11/23/20 10/31/21 tablet,extended release(part/cryst) (Klor-Con M) sertraline 100 mg tablet 150 mg PO QAM 11/23/20 10/31/21 simvastatin 40 mg tablet 40 mg PO HS 11/23/20 10/31/21 triamterene 37.5 1 cap PO QAM 11/23/20 10/31/21 mg-hydrochlorothiazide 25 mg capsule diazepam 2 mg tablet 2 mg PO DAILY 10/31/21 10/31/21 Allergies Allergy/AdvReac Type Severity Reaction Status Date / Time citalopram Allergy Intermediate FELT Verified 10/31/21 17:33 INSIDES BURNING ciprofloxacin AdvReac Severe Muscle pain Verified 10/31/21 17:33 levofloxacin AdvReac Severe Vertigo Verified 10/31/21 17:33 Review of Systems Review of Systems: CONSTITUTIONAL: Denies malaise, chills, sweats, or fever. CARDIOVASCULAR: Denies chest pain, palpitations, or edema. RESPIRATORY: Denies cough or dyspnea. GASTROINTESTINAL: Denies abdominal pain, nausea, vomiting, diarrhea GENITOURINARY: Reports frequency. Denies dysuria urgency, suprapubic pressure. SKIN: Denies rash or itching. MUSCULOSKELETAL: Reports low back pain. Denies myalgia. All systems reviewed & are unremarkable except as noted in HPI and below PMFSH Past Medical History Medical History (Updated 10/31/21 @ 17:50 by Alondra Norris NP) Diastolic dysfunction Generalized anxiety disorder GERD (gastroesophageal reflux disease) History of removal of breast implant Hyperlipidemia Hypertension Hypothyroid EMILY (obstructive sleep apnea) Surgical History Surgical History (Updated 12/07/20 @ 07:31 by LOGAN Vang) H/O bilateral breast reduction surgery H/O breast implant H/O breast surgery At least 4 surgery S/P total knee arthroplasty Right knee Family History Family History (Updated 12/06/20 @ 23:50 by Jeanette Alcantara NP) Mother Lung cancer Social History Social History (Updated 12/06/20 @ 23:51 by Jeanette Alcantara NP) Social History: The patient lives with her who is a durable power data architect for healthcare along with her son. She has 1 son. 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 She does not use any marijuana alcohol or illicit drugs. Code status full code Smoking status: Never smoker Additional smoking assessment comments: DENIES ANY FORM OF TOBACCO USE Alcohol intake: never Substance use: never Substance use type: does not use Spiritual care concerns: No Comments At time of signature, agree with nursing past medical, surgical, social and family history. There is no relevant family history pertinent to the presenting complaint Exam Narrative: GENERAL: Well-appearing, well-nourished, and in no acute distress. HEAD: Normocephalic. EYES: PERRLA, conjunctivae clear. NECK: Supple. No lymphadenopathy CHEST: Clear to auscultation. No respiratory distress. HEAR
[2021-10-31 17:28] VITALS: BP 124/62; PULSE 66; RESP 20; TEMP 36.8; O2SAT 99
== END 2021-10-31 17:52 | disposition home or self-care (01) ==
PROVIDERS: Emergency Provider Nurse Practitioner; PCP Physician Assistant
DX: R35.0 Frequency of micturition (principal); M54.50 Low back pain, unspecified; K21.9 Gastro-esophageal reflux disease without esophagitis; E78.5 Hyperlipidemia, unspecified; I10 Essential (primary) hypertension; E03.9 Hypothyroidism, unspecified; G47.33 Obstructive sleep apnea (adult) (pediatric); F41.1 Generalized anxiety disorder
CPT/HCPCS: 81003; 87086; 87088; 99213; G0463

== ENCOUNTER 2022-02-21 14:01 | Emergency (ER) | payer MEDICARE, SELFPAY ==
--- NOTE | 2022-02-21 14:03 | ED.URI ---
HPI - URI/Sore Throat General Chief Complaint: Upper Respiratory Infection Stated Complaint: Cough Time Seen by Provider: 02/21/22 14:04 Source: patient and RN notes reviewed History of Present Illness HPI Narrative: patient is a 71-year-old female who presents to the Urgent Care with complaints of cough and feels like she has rattling in the left lower. Patient states that it started 2 hours ago. Denies any fever chest pain. Denies shortness of breath. Patient has not taken anything [id number] for her symptoms. States that she does take a daily Delaney. No other acute complaints. No acute distress noted. Patient aware of the plan of care. Some parts of this dictation were generated by voice recognition software and may contain typographical and/or grammatical inaccuracies. Related Data Home Medications Medication Instructions Recorded Confirmed buspirone 15 mg tablet 15 mg PO QAM 11/23/20 02/21/22 levothyroxine 75 mcg tablet 75 mcg PO DAILY 11/23/20 02/21/22 (Synthroid) potassium chloride 20 mEq 20 meq PO QAM 11/23/20 02/21/22 tablet,extended release(part/cryst) (Klor-Con M) sertraline 100 mg tablet 150 mg PO QAM 11/23/20 02/21/22 simvastatin 40 mg tablet 40 mg PO HS 11/23/20 02/21/22 triamterene 37.5 1 cap PO QAM 11/23/20 02/21/22 mg-hydrochlorothiazide 25 mg capsule diazepam 2 mg tablet 2 mg PO DAILY 10/31/21 02/21/22 fluticasone propionate 50 See Rx Instructions .Route .COMPLEX 02/21/22 02/21/22 mcg/actuation nasal spray,suspension Allergies Allergy/AdvReac Type Severity Reaction Status Date / Time citalopram Allergy Intermediate FELT Verified 02/21/22 14:33 INSIDES BURNING ciprofloxacin AdvReac Severe Muscle pain Verified 02/21/22 14:33 levofloxacin AdvReac Severe Vertigo Verified 02/21/22 14:33 Review of Systems Review of Systems: CONSTITUTIONAL: Denies fever, chills, or sweats. EYES: Denies visual changes, redness, or discharge. ENT: Denies rhinorrhea, congestion, sore throat, or otalgia. CARDIOVASCULAR: Denies chest pain, palpitations, or edema. RESPIRATORY: Reports of cough with left lower rattling GASTROINTESTINAL: Denies abdominal pain, nausea, vomiting, or diarrhea. GENITOURINARY: Denies dysuria or hematuria. SKIN: Denies rash or itching. MUSCULOSKELETAL: Denies back pain, joint pain, or myalgia. NEUROLOGIC: Denies headache, numbness, or weakness. All other systems reviewed are negative, except as documented in HPI. [facility] Past Medical History Medical History (Updated 02/21/22 @ 14:50 by PAM Vazquez) Diastolic dysfunction Generalized anxiety disorder GERD (gastroesophageal reflux disease) History of removal of breast implant Hyperlipidemia Hypertension Hypothyroid EMILY (obstructive sleep apnea) Surgical History Surgical History (Updated 12/07/20 @ 07:31 by LOGAN Vang) H/O bilateral breast reduction surgery H/O breast implant H/O breast surgery At least 4 surgery S/P total knee arthroplasty Right knee Family History Family History (Updated 12/06/20 @ 23:50 by Jeanette Alcantara NP) Mother Lung cancer Social History Social History (Updated 12/06/20 @ 23:51 by Jeanette Alcantara NP) Social History: The patient lives with her who is a durable power insurance attorney for healthcare along with her son. She has 1 son. 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 She does not use any marijuana alcohol or illicit drugs. Code status full code Smoking status: Never smoker Additional smoking assessment comments: DENIES ANY FORM OF TOBACCO USE Alcohol intake: never Substance use: never Substance use type: does not use Spiritual care concerns: No Comments At the time of my signature, I reviewed and agree with the nursing past medical, surgical, social, and family history. There is no relevant family history pertinent to the patient complaint. Exa
[2022-02-21 14:25] VITALS: BP 143/70; PULSE 81; RESP 16; TEMP 36.9; O2SAT 96
== END 2022-02-21 14:50 | disposition home or self-care (01) ==
PROVIDERS: Emergency Provider Nurse Practitioner Family; PCP Physician Assistant
DX: J00 Acute nasopharyngitis [common cold] (principal); K21.9 Gastro-esophageal reflux disease without esophagitis; E78.5 Hyperlipidemia, unspecified; I10 Essential (primary) hypertension; E03.9 Hypothyroidism, unspecified; F41.1 Generalized anxiety disorder
CPT/HCPCS: 99211; G0463

== ENCOUNTER 2022-05-28 01:18 | Day surgery (SDC) | payer MEDICARE, SELFPAY ==
[2022-05-16 09:12] VITALS: BMI 29.2
[2022-05-28 09:52] VITALS: BP 156/75; PULSE 70; RESP 16; TEMP 36.4; O2SAT 98
[2022-05-28] MEDS: GENTAMICIN 80MG/SOD CHL 50 ML 80 MG/50 ML BAG 100 MG IVPB (10:01)
[2022-05-28] MEDS: LACTATED RINGERS 1,000 ML 150 ML IV CONT (10:04)
[2022-05-28] MEDS: AMPICILLIN 2 GM/NS 100 ML 2 GM/100 ML BAG IVPB (10:05)
--- NOTE | 2022-05-28 10:28 | WPDANESEPPF ---
Anes - Initial Pre Proc Eval Procedure: Operation Date: 05/28/22 11:15 Proposed Procedures p Esophagogastroduodenoscopy & Screening Colonoscopy - Tex Balbuena MD Date/Time: 05/28/22 10:28 Surgeon: Tex Balbuena MD Pre Op Diagnosis: dysphagia, Neoplasm screening Patient Data Age: 71 Gender: F Height: 1.63 m Weight: 77.3 kg Last Vital Signs Temp 97.6 F 05/28/22 09:52 Pulse 70 05/28/22 09:52 Resp 16 05/28/22 09:52 BP 156/75 H 05/28/22 09:52 Pulse Ox 98 05/28/22 09:52 O2 Del Method Room Air 05/28/22 09:52 Allergies Allergy/AdvReac Type Severity Reaction Status Date / Time ciprofloxacin Allergy Severe Muscle pain Verified 05/28/22 09:49 levofloxacin Allergy Severe Vertigo Verified 05/28/22 09:49 citalopram Allergy Intermediate FELT Verified 05/28/22 09:49 INSIDES BURNING Home Medications Medication Instructions Recorded Confirmed Type buspirone 15 mg tablet 22.5 mg PO QAM 11/23/20 05/28/22 History levothyroxine 75 mcg tablet 75 mcg PO DAILY 11/23/20 05/28/22 History (Synthroid) potassium chloride 20 mEq 40 meq PO DAILY 11/23/20 05/28/22 History tablet,extended release(part/cryst) (Klor-Con M) sertraline 100 mg tablet 150 mg PO QAM 11/23/20 05/28/22 History simvastatin 40 mg tablet 40 mg PO 11/23/20 05/28/22 History triamterene 37.5 1 cap PO QAM 11/23/20 05/28/22 History mg-hydrochlorothiazide 25 mg capsule diazepam 2 mg tablet 2 mg PO DAILY 10/31/21 05/28/22 History fluticasone propionate 50 2 spray intranasal 02/21/22 05/28/22 History mcg/actuation nasal spray,suspension cholecalciferol (vitamin D3) 10 10 mcg PO DAILY 04/18/22 05/28/22 History mcg (400 unit) capsule mecobalamin (vitamin B12) 1,000 1,000 mcg PO EVERY OTHER DAY 04/18/22 05/28/22 History mcg lozenges Adult Probiotic 1 cap PO DAILY 05/16/22 05/28/22 History ascorbic acid (vitamin C) 500 mg 500 mg PO DAILY 05/16/22 05/28/22 History capsule aspirin 81 mg tablet 81 mg PO DAILY 05/16/22 05/28/22 History coQ10 (ubiquinol) 100 mg capsule 100 mg PO DAILY 05/16/22 05/28/22 History fexofenadine 180 mg tablet 180 mg PO DAILY 05/16/22 05/28/22 History zinc 30 mg PO DAILY 05/16/22 05/28/22 History Patient hx anesthesia problems: none Family hx anesthesia problems: none Results Review: All pre-operative results and documents have been reviewed as part of the pre-operative evaluation. [facility] Past Medical History Medical History (Updated 04/18/22 @ 09:28 by Tex Balbuena MD) Adenomatous colon polyp Diastolic dysfunction Dysphagia Esophageal ring Generalized anxiety disorder GERD (gastroesophageal reflux disease) History of removal of breast implant Hyperlipidemia Hypertension Hypothyroid EMILY (obstructive sleep apnea) Surgical History Surgical History H/O bilateral breast reduction surgery H/O breast implant H/O breast surgery At least 4 surgery S/P total knee arthroplasty Right knee Family History Family History Mother Lung cancer Social History Social History Social History: The patient lives with her who is a durable power accounting representative for healthcare along with her son. She has 1 son. 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 She does not use any marijuana alcohol or illicit drugs. Code status full code Smoking status: Never smoker Additional smoking assessment comments: DENIES ANY FORM OF TOBACCO USE Alcohol intake: never Substance use: never Substance use type: does not use Living arrangements: with family Spiritual care concerns: No Anes - Eval Final PreProcedure Day of Procedure 05/28/22 10:28 Patient weight: obese Heart: regular rat
--- NOTE | 2022-05-28 10:39 | PM.HPGS ---
History of Present Illness History of Present Illness Consent: Risks, benefits, and alternatives have been discussed and questions answered. Patient agrees to proceed with procedure. Chief complaint: dysphagia, Neoplasm screening Narrative: Yadira Roe is a 71 year old female with?Schatzki ring several years ago and was stretched out, recently had episode that needed to bring up food and wonder if needs another egd. Also had colon polyp about 5 years ago Review of Systems Constitutional: Constitutional: Denies headache(s) and Denies weakness Eyes: Eyes: Denies blurry vision ENT: Reports Normal hearing present, Denies headache(s) and Denies neck pain Cardiovascular: Cardiovascular: Denies chest pain and Denies dyspnea Respiratory: Respiratory: Denies dyspnea Gastrointestinal: Gastrointestinal: Reports no additional gastrointestinal complaints Genitourinary: Genitourinary: Denies dysuria Musculoskeletal: Musculoskeletal: Denies neck pain Integumentary/Breasts: Skin/Breast: Denies dry skin Neurologic: Reports Normal hearing present, Denies headache(s) and Denies weakness Psychiatric: Psychiatric: Denies anxiety Endocrine: Endocrine: Denies change in body appearance Hematologic/Lymphatic: Hematologic/Lymphatic: Denies easy bleeding Allergic/Immunologic: Allergic/Immunologic: Denies urticaria PMF Past Medical History Medical History (Updated 04/18/22 @ 09:28 by Tex Balbuena MD) Adenomatous colon polyp Diastolic dysfunction Dysphagia Esophageal ring Generalized anxiety disorder GERD (gastroesophageal reflux disease) History of removal of breast implant Hyperlipidemia Hypertension Hypothyroid EMILY (obstructive sleep apnea) Surgical History Surgical History H/O bilateral breast reduction surgery H/O breast implant H/O breast surgery At least 4 surgery S/P total knee arthroplasty Right knee Family History Family History Mother Lung cancer Social History Social History Social History: The patient lives with her who is a durable power corporate attorney for healthcare along with her son. She has 1 son. 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 She does not use any marijuana alcohol or illicit drugs. Code status full code Smoking status: Never smoker Additional smoking assessment comments: DENIES ANY FORM OF TOBACCO USE Alcohol intake: never Substance use: never Substance use type: does not use Living arrangements: with family Spiritual care concerns: No Meds Home Medications and Allergies Home Medications Medication Instructions Recorded Confirmed Type buspirone 15 mg tablet 22.5 mg PO QA 11/23/20 05/28/22 History levothyroxine 75 mcg tablet 75 mcg PO DAILY 11/23/20 05/28/22 History (Synthroid) potassium chloride 20 mEq 40 meq PO DAILY 11/23/20 05/28/22 History tablet,extended release(part/cryst) (Klor-Con M) sertraline 100 mg tablet 150 mg PO [facility] 11/23/20 05/28/22 History simvastatin 40 mg tablet 40 mg PO 11/23/20 05/28/22 History triamterene 37.5 1 cap PO [facility] 11/23/20 05/28/22 History mg-hydrochlorothiazide 25 mg capsule diazepam 2 mg tablet 2 mg PO DAILY 10/31/21 05/28/22 History fluticasone propionate 50 2 spray intranasal 02/21/22 05/28/22 History mcg/actuation nasal spray,suspension cholecalciferol (vitamin D3) 10 10 mcg PO DAILY 04/18/22 05/28/22 History mcg (400 unit) capsule mecobalamin (vitamin B12) 1,000 1,000 mcg PO EVERY OTHER DAY 04/18/22 05/28/22 History mcg lozenges Adult Probiotic 1 cap PO DAILY 05/16/22 05/28/22 History ascorbic acid (vitamin C) 500 mg 500 mg PO DAILY 05/16/22 05/28/22 History capsule aspirin 81 mg tablet 81 mg PO DAILY 05/16/22 05/28/22
[2022-05-28 11:21] VITALS: BP 91/42; PULSE 57; RESP 18; O2SAT 97
[2022-05-28 11:31] VITALS: BP 109/57; PULSE 60; RESP 16; O2SAT 99
[2022-05-28 11:41] VITALS: BP 100/72; PULSE 53; RESP 20; O2SAT 98
== END 2022-05-28 11:50 | disposition home or self-care (01) ==
PROVIDERS: PCP Physician Assistant; Visit Provider Internal Medicine Gastroenterology
PROC: 0DJ08ZZ Inspection of Upper Intestinal Tract, Via Natural or Artificial Opening Endoscopic (ICD-10-PCS; CPT 43235; principal; 2022-05-28 11:15)
DX: Z12.11 Encounter for screening for malignant neoplasm of colon (principal); Z86.010 Personal history of colon polyps; K22.2 Esophageal obstruction; K44.9 Diaphragmatic hernia without obstruction or gangrene; K29.50 Unspecified chronic gastritis without bleeding; I11.9 Hypertensive heart disease without heart failure; E03.9 Hypothyroidism, unspecified; E78.5 Hyperlipidemia, unspecified; G47.33 Obstructive sleep apnea (adult) (pediatric); K21.9 Gastro-esophageal reflux disease without esophagitis; F41.1 Generalized anxiety disorder; Z79.82 Long term (current) use of aspirin; E66.9 Obesity, unspecified; Z68.29 Body mass index [BMI] 29.0-29.9, adult
CPT/HCPCS: 43249; 43239; G0105; 88305; 88342; C1726; J0290; J1580; J2704; J7120

== ENCOUNTER 2022-06-18 13:23 | Outpatient (CLI) | payer MEDICARE, SELFPAY ==
[2022-06-18 15:03] LABS: Toxigenic C. Diff NEGATIVE (NEGATIVE)
== END 2022-06-18 13:24 | disposition home or self-care (01) ==
LOC: ANHLAB 13:25
PROVIDERS: PCP Physician Assistant; Visit Provider Nurse Practitioner Family
DX: R19.7 Diarrhea, unspecified (principal)
CPT/HCPCS: 87045; 87177; 87209; 87427; 87493